=== PATIENT | male | born 2000 | race Caucasian/White ===

== ENCOUNTER 2022-06-26 11:02 | Outpatient (CLI) | payer BC, SELFPAY ==
[2022-06-26 14:22] LABS: Uric Acid* 6.9 mg/dL (2.2-8.4)
== END 2022-06-26 11:03 | disposition home or self-care (01) ==
LOC: LKVREF 11:04
PROVIDERS: Visit Provider Physician Assistant
DX: M25.561 Pain in right knee (principal)
CPT/HCPCS: 84550